=== PATIENT | male | born 1955 | race Caucasian/White ===

== ENCOUNTER 2024-07-24 21:15 | Emergency (ER) | payer OTHER ==
[~2024-07-24] VITALS: Ht 160 cm; Wt 68.7 kg
[2024-07-24 21:32] VITALS: BP 154/85; PULSE 92; RESP 16; TEMP 98.7; O2SAT 98
[2024-07-26] MEDS ORDERED: SULF1TAB48 MT (22:08)
[2024-07-26] MEDS ORDERED: BO1 TP (22:08)
[2024-07-26] MEDS ORDERED: CEPH500T MT (22:08)
== END 2024-07-25 00:32 | disposition home or self-care (01) ==
LOC: ER 21:15
DX: S69.91XA Unspecified injury of right wrist, hand and finger(s), initial encounter (principal); T75.4XXA Electrocution, initial encounter; W86.8XXA Exposure to other electric current, initial encounter; Y93.89 Activity, other specified; Y92.89 Other specified places as the place of occurrence of the external cause; Y99.8 Other external cause status
CPT/HCPCS: 12001; 99282

== ENCOUNTER 2024-07-26 19:27 | Emergency (ER) | payer OTHER ==
[~2024-07-26] VITALS: Ht 160 cm; Wt 68.0 kg
[2024-07-26 19:36] VITALS: O2SAT 98
[2024-07-26] MEDS ORDERED: BO1 TP (22:08)
[2024-07-26] MEDS ORDERED: SULF1TAB48 MT (22:08)
[2024-07-26] MEDS ORDERED: CEPH500T MT (22:08)
[2024-07-26 22:18] VITALS: BP 129/71; PULSE 92; RESP 20; TEMP 36.78072; O2SAT 100
== END 2024-07-26 22:18 | disposition home or self-care (01) ==
LOC: ER 19:27
DX: L03.011 Cellulitis of right finger (principal); Z79.899 Other long term (current) drug therapy
CPT/HCPCS: 73120; 99283